=== PATIENT | female | born 1965 | race Asian ===

== ENCOUNTER 2017-08-10 11:36 | Emergency (ER) | payer BC ==
[~2017-08-10] VITALS: Ht 167.6 cm; Wt 64.0 kg
[2017-08-10 11:41] VITALS: Ht 167.6 cm; Wt 64.0 kg
[2017-08-10] MEDS ORDERED: ACETAMINOPHEN 500 MG TAB PO STA (11:58)
[2017-08-10] MEDS ORDERED: SOD CHLORIDE 0.9% 1,000 ML IV ONE (11:58)
[2017-08-10 12:30] LABS: BASOPHIL # 0.1 10^3/ul (0.0-0.1); BASOPHILS % 1.3 % (0.0-2.0); EOSINOPHILS # 0.2 10^3/ul (0.0-0.5); EOSINOPHILS % 2.9 % (0.0-7.0); HEMATOCRIT 41.2 % (37.0-47.0); HEMOGLOBIN 13.9 g/dl (12.0-16.0); LYMPHOCYTES % 25.2 % (15.0-51.0); MEAN CORPUSCULAR HEMOGLOBIN 31.6 pg (29.0-33.0); MEAN CORPUSCULAR HGB CONC 33.7 g/dl (32.0-37.0); MEAN CORPUSCULAR VOLUME 93.6 fl (82.0-101.0); MEAN PLATELET VOLUME 10.3 fl (7.4-10.4); MONOCYTE # 0.6 10^3/ul (0.3-0.9); NEUTROPHILS % 63.3 % (39.0-77.0); PLATELET COUNT 304 10^3/UL (140-415)
[2017-08-10 12:53] LABS: ALANINE AMINOTRANSFERASE 31 IU/L (13-69); ALBUMIN 4.8 g/dl (3.3-4.9); ALKALINE PHOSPHATASE 60 IU/L (42-121); ANION GAP 15 (8-16); ASPARTATE AMINO TRANSFERASE 35 IU/L (15-46); BILIRUBIN,INDIRECT 0.3 mg/dl (0-1.1); BILIRUBIN,TOTAL 0.3 mg/dl (0.2-1.3); BLOOD UREA NITROGEN 10 mg/dl (7-20); CALCIUM 9.7 mg/dl (8.4-10.2); CARBON DIOXIDE 24 mmol/L (21-31); CHLORIDE 106 mmol/L (97-110); GLUCOSE 108 mg/dl (70-220); POTASSIUM 4.4 mmol/L (3.5-5.1); SODIUM 141 mmol/L (135-144); TOTAL PROTEIN 8.8 g/dl (6.1-8.1)
[2017-08-10 12:59] LABS: INR 0.95; PROTIME 12.7 Sec (12.2-14.2)
[2017-08-10 13:00] LABS: PARTIAL THROMBOPLASTIN TIME 32.1 Sec (25.0-35.0)
--- NOTE | 2017-08-10 13:02 | RADRPT ---
PROCEDURE: XR Chest 1 View. CLINICAL INDICATION: Chest pain TECHNIQUE: PA view of the chest was obtained. COMPARISON: May 15, 2008 FINDINGS: The cardiomediastinal silhouette is within normal limits. The lungs are hyperexpanded. No consolidat ions are identified. No pneumothorax is seen. Subsegmental atelectasis is seen at the lung bases. O sseous structures are intact. IMPRESSION: Hyperexpanded lungs. Subsegmental atelectasis at the lung bases. RPTAT: AA .Richie Velarde MD, Date Time Electronically viewed and signed by .Richie Velarde MD, on 08/10/2017 13:01 .P/
--- NOTE | 2017-08-10 13:03 | RADRPT ---
PROCEDURE: XR Cervical Spine 3 Views. CLINICAL INDICATION: Neck pain. TECHNIQUE: AP, lateral and odontoid views of the cervical spine were performed. The images were re viewed on a PACS workstation. COMPARISON: None. FINDINGS: Mild reversal of the normal lordosis is observed. No fractures or destructive bony lesions are obse rved. Severe intervertebral disc space narrowing is identified from C3-C6. Anterior osteophytosis i s seen through these levels. The facet joints are grossly unremarkable. No prevertebral soft tissue thickening is observed. IMPRESSION: Reversal of the normal lordosis. This could be positional in nature. Severe degenerative disc disease from C3-C6. If further characterization is needed CT or MRI could be helpful. If there is high clinical suspicion for traumatic injury, further evaluation with CT should be consi dered. RPTAT: AA .Richie Velarde MD, Date Time Electronically viewed and signed by .Richie Velarde MD, on 08/10/2017 13:03 .P/
[2017-08-10 13:04] LABS: TROPONIN-I < 0.012 ng/ml (0.00-0.12)
[2017-08-10 13:06] LABS: D-DIMER 255.48 ng/ml (<460)
[2017-08-10] MEDS ORDERED: ACET500C5 PO (13:22)
--- NOTE | 2017-08-10 13:28 | ERD ---
ER Documentation Chief Complaint Date/Time DATE: 08/10/17 TIME: 13:25 Chief Complaint SUDDEN ONSET, DIZZINESS, BILATERAL SHOULDER PAIN RADIATING DOWN ARM HPI This 52-year-old female presents with some pain in her neck radiating to her bilateral shoulders starting this morning. She denies any fall or trauma. She also has some nonspecific dizziness. She denies spinning sensation, headache, weakness, fevers, recent illnesses, abdominal pain, chest pain or shortness of breath. 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 ROS All systems reviewed and are negative except as per history of present illness. Medications Home Meds Active Scripts Acetaminophen* (Tylophen*) 500 Mg Capsule, 1 CAP PO Q6H Y for PAIN AND OR ELEVATED TEMP, #15 CAP Prov:ANGELA RENAE MD 08/10/17 Allergies Allergies: Coded Allergies: Penicillins (Verified Allergy, Mild, HIVES, 01/08/16) pantoprazole (Verified Allergy, Mild, RASH, 01/08/16) ibuprofen (Verified Allergy, Unknown, 01/08/16) PMhx/Soc History of Surgery: Yes (,ENDOSCOPY) Anesthesia Reaction: No Hx Neurological Disorder: No Hx Respiratory Disorders: No Hx Cardiac Disorders: No Hx Psychiatric Problems: No Hx Miscellaneous Medical Probl: Yes (GERD, CHRONIC LOW BACK PAIN) Hx Alcohol Use: No Hx Substance Use: No Hx Tobacco Use: No Smoking Status: Never smoker Physical Exam Vitals Vital Signs Date Time Temp Pulse Resp B/P Pulse Ox O2 Delivery O2 Flow Rate FiO2 08/10/17 11:41 99.3 108 18 168/80 99 Physical Exam Const: []Alert, [id number] Head: Atraumatic Eyes: Normal Conjunctiva ENT: Normal External Ears, Nose and Mouth. Neck: Full range of motion..~ No meningismus.Reproducible paracervical spinous tenderness and trapezius tenderness. Resp: Clear to auscultation bilaterally Cardio: Regular rate and rhythm, no murmurs Abd: Soft, non tender, non distended. Normal bowel sounds Skin: No petechiae or rashes Back: No midline or flank tenderness Ext: No cyanosis, or edema Neur: Awake and alert Psych: Normal Mood and Affect Result Diagram: 08/10/17 1211 08/10/17 1211 Results 24 hrs Laboratory Tests Test 08/10/17 12:11 White Blood Count 8.010^3/ul Red Blood Count 4.4010^6/ul Hemoglobin 13.9g/dl Hematocrit 41.2% Mean Corpuscular Volume 93.6fl Mean Corpuscular Hemoglobin 31.6pg Mean Corpuscular Hemoglobin Concent 33.7g/dl Red Cell Distribution Width 13.0% Platelet Count 72255^3/UL Mean Platelet Volume 10.3fl Neutrophils % 63.3% Lymphocytes % 25.2% Monocytes % 7.0% Eosinophils % 2.9% Basophils % 1.3% Nucleated Red Blood Cells % 0.0/100WBC Neutrophils # (Manual) 5.110^3/ul Lymphocytes # 2.010^3/ul Monocytes # 0.610^3/ul Eosinophils # 0.210^3/ul Basophils # 0.110^3/ul Nucleated Red Blood Cells # 0.010^3/ul Prothrombin Time 12.7Sec Prothrombin Time Ratio 1.0 INR International Normalized Ratio 0.95 Activated Partial Thromboplast Time 32.1Sec D-Dimer 255.48ng/ml D-Dimer Comment Sodium Level 141mmol/L Potassium Level 4.4mmol/L Chloride Level 106mmol/L Carbon Dioxide Level 24mmol/L Anion Gap 15 Blood Urea Nitrogen 10mg/dl Creatinine 0.60mg/dl Glucose Level 108mg/dl Calcium Level 9.7mg/dl Total Bilirubin 0.3mg/dl Direct Bilirubin 0.00mg/dl Indirect Bilirubin 0.3mg/dl Aspartate Amino Transf (AST/SGOT) 35IU/L Alanine Aminotransferase (ALT/SGPT) 31IU/L Alkaline Phosphatase 60IU/L Troponin I < 0.012ng/ml Total Protein 8.8g/dl Albumin 4.8g/dl Globulin 4.00g/dl Albumin/Globulin Ratio 1.20 Current Medications Medications (Trade) Dose Ordered Sig/Kayli Route PRN Reason Start Time Stop Time Status Last Admin Dose Admin Acetaminophen 500 mg 500 mg ONCE STAT PO 08/10/17 11:58 08/10/17 12:02 DC 08/10/17 12:24 Sodium Chloride (NS) 1,000 ml @ 0 mls/hr Q0M ONCE IV 08/10/17 11:58 08/10/17 12:02 DC 08/10/17 12:24 Procedures/MDM Urine is negative for acute abnormalities. CBC CMP, troponin negative and d- dimer the normal limits. Chest X-ray 1V Interpreted by me: Soft Tissue: No acute abnormalities Bones: No acute abnormalities Mediastinum/Cardiac Silhouette/Lungs: [No acute abnormalities]. Impression- normal 1 view chest x-ray X-ray C spine 3V Interpreted by me: Bones: [No fracture] Joints: [No dislocation] Foreign body: [None]. Impression-severe degenerative changes of cervical spine. Patient was given 1 L normal saline IV for tachycardia and Tylenol by mouth. Patient felt better after observation treatment. Patient presents with neck pain and dizziness of uncertain etiology. Current signs or symptoms do not suggest PE, acute coronary syndrome, neurologic deficits or central lesions. No evidence of acute cardiopulmonary disorders. Patient may have radicular pain contributing to her sensation of dizziness. Patient was advised of the results of her cervical spine x-ray and she will be discharged home with instructions for rest and Tylenol and primary care follow-up and return precautions. The patient was stable with no new complaints during the ER course. Clinically, there is no current evidence to suggest meningitis, sepsis, acute abdomen, pneumonia, acute coronary syndrome, pulmonary embolism, or any other emergent condition appearing to require further evaluation or hospitalization. The patient should certainly return for any new or worsening symptoms per the aftercare instructions. They should otherwise follow-up with her primary care doctor for reevaluation this week. Departure Diagnosis: Primary Impression: Neck pain Additional Impression: Dizziness Condition: Stable Patient Instructions: Dizziness, Unk Cause, Neck Pain, No Trauma Additional Instructions: X-ray shows significant arthritis of the cervical spine which may be cause of symptoms. Recommend recheck with primary doctor. Consider MRI and specialist evaluation and further study for persistent or worsening symptoms. Recheck otherwise for chest pain, shortness breath, fevers, new symptoms ANGELA RENAE MD Aug 10, 2017 13:28
[2017-08-10 13:35] VITALS: BP 145/65; PULSE 88; RESP 18; TEMP 98.1
== END 2017-08-10 13:38 | disposition home or self-care (01) ==
LOC: FTE 11:36
DX: M54.2 Cervicalgia (principal); R07.9 Chest pain, unspecified
CPT/HCPCS: 36415; 71010; 72040; 80053; 84484; 85025; 85378; 85610; 85730; 93005; 99285; J7030